=== PATIENT | male | born 1985 | race Caucasian/White ===

== ENCOUNTER 2022-12-27 13:48 | Emergency (ER) | payer BC, OTHER ==
[2022-12-27] MEDS ORDERED: Sodium Chloride 0.9% 2.5 ML Syringe FLUSH PRN (14:08)
[2022-12-27] MEDS ORDERED: Sodium Chloride 0.9% 10 ML Syringe FLUSH PRN (14:08)
[2022-12-27] MEDS ORDERED: Lidocaine 1% 5 ML VIAL INJECT ONE (14:10)
[2022-12-27] MEDS ORDERED: Sodium Chloride 0.9% 500 ML IV SCH (14:15)
[2022-12-27 14:40] LABS: CARBON DIOXIDE,CO2 28.6 mmol/L (21.0-32.0); POTASSIUM,K 3.5 mmol/L (3.5-5.1)
[2022-12-27] MEDS ORDERED: Diphtheria,Pertussis(Acell),Tetanus Vaccine 0.5 ML Syringe IM ONE (16:34)
[2022-12-27] MEDS ORDERED: Iopamidol 755 MG/ML 500 ML Multipack Bottle IVPUSH ONE (17:27)
== END 2022-12-27 19:23 | disposition home or self-care (01) ==
LOC: MW.ED 13:48
DX: S01.511A Laceration without foreign body of lip, initial encounter (principal); S81.011A Laceration without foreign body, right knee, initial encounter; S27.321A Contusion of lung, unilateral, initial encounter; R31.9 Hematuria, unspecified; Z23 Encounter for immunization; V86.92XA Unspecified occupant of snowmobile injured in nontraffic accident, initial encounter
CPT/HCPCS: 12002; 12011; 36415; 71045; 71275; 72170; 73562; 74177; 80053; 80305; 80307; 81001; 85025; 85610; 90471; 90715; 96360; 99284; J3490; J7040; Q9967; 99283